=== PATIENT | female | born 1935 | race Caucasian/White ===

== ENCOUNTER 2022-11-05 09:51 | Outpatient (OUT) | payer MEDICARE, SELFPAY ==
[2022-11-05 12:17] LABS: Thyroid Stimulating Hormone 2.679 uIU/mL (0.358-3.740)
== END 2022-11-05 09:52 | disposition home or self-care (01) ==
LOC: LAB 09:53
PROVIDERS: PCP Internal Medicine; Visit Provider Internal Medicine
DX: E06.3 Autoimmune thyroiditis (principal)
CPT/HCPCS: 36415; 84443

== ENCOUNTER 2024-10-04 08:35 | Outpatient (OUT) | payer MEDICARE, SELFPAY ==
[2024-10-04 09:42] LABS: Thyroid Stimulating Hormone 3.835 uIU/mL (0.358-3.740)
== END 2024-10-04 08:36 | disposition home or self-care (01) ==
PROVIDERS: Visit Provider Internal Medicine
DX: E78.00 Pure hypercholesterolemia, unspecified (principal); E06.3 Autoimmune thyroiditis; Z79.899 Other long term (current) drug therapy; R53.83 Other fatigue
CPT/HCPCS: 36415; 84443